=== PATIENT | male | born 1930 | race Caucasian/White ===

== ENCOUNTER 2016-02-26 22:14 | Emergency (ER) | payer MEDICARE, MEDICAID ==
[2016-02-26 23:39] LABS: ABSOLUTE NEUTROPHIL COUNT 9.2 K/mm3 (1.8-7.7); BASO % 0.4 % (0.2-1.0); EOS # 0.2 (0.0-0.5); EOS % 1.4 % (0.9-2.9); HEMATOCRIT 38.6 % (32.0-52.0); HEMOGLOBIN 13.2 gm/l (14.0-18.0); IMM NEUT% 0.2 % (0-1); LYMPH # 0.5 (1.0-4.8); LYMPH % 5.1 % (15-45); MEAN CELL VOLUME 88.3 fl (80.0-94.0); MEAN CORPUSCULAR HEMOGLOBIN 30.2 pg (27.0-31.0); MEAN CORPUSCULAR HGB CONC 34.2 g/dl (33.0-37.0); MEAN PLATELET VOLUME 9.9 fl (7.4-10.4); MONO # 0.7 (0.0-0.8); MONO % 6.3 % (4-12); NEUT % 86.6 % (43-75); PLATELET COUNT 162 K/mm3 (130-400)
[2016-02-26] MEDS ORDERED: KETOROLAC TROMETHAMINE 15 MG/ML VIAL ONE (23:40)
[2016-02-26] MEDS ORDERED: ALBUTEROL/IPRATROPIUM 2.5/0.5 MG 3 ML/EACH DOSE ONE (23:51)
[2016-02-27 00:04] LABS: ALBUMIN 3.6 gm/dL (3.5-5.7)
[2016-02-27] MEDS ORDERED: AZITHROMYCIN 250 MG TABLET ONE (01:07)
[2016-02-27 02:24] LABS: SPECIFIC GRAVITY 1.025 (1.001-1.030); URINE BILIRUBIN NEGATIVE (NEGATIVE); URINE BLOOD NEGATIVE (NEGATIVE); URINE GLUCOSE (UA) NEGATIVE (NEGATIVE); URINE LEUKOCYTE ESTERASE NEGATIVE (NEGATIVE); URINE NITRITE NEGATIVE (NEGATIVE); URINE PROTEIN 1+ (NEGATIVE); URINE UROBILINOGEN 1 mg/dL (0-1 mg/dl)
[2016-02-27 02:25] LABS: URINE APPEARANCE CLEAR; URINE COLOR DARK YELLOW
[2016-02-27 02:27] LABS: URINE BACTERIA 0; URINE EPITHELIAL CELLS FEW /hpf; URINE RBC 0-1 /hpf; URINE WBC NEG /hpf
--- NOTE | 2016-02-27 07:47 | RAD ---
Exam: Two-view chest COMPARISON: 11/29/2015, 04/07/2015 INDICATION: Weakness and cough for 2 days. Findings: PA and lateral views of the chest were obtained. Cardiac silhouette is within normal limits and stable. 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 Asymmetric elevation of the left hemidiaphragm with associated left basilar scarring is unchanged. Lung haynes are otherwise clear. Superior retraction of the minor fissure is similar. There is no pleural effusion. Bones of the chest wall within normal limits. IMPRESSION: No acute pulmonary process. There is no definite radiographic evidence of pneumonia.
== END 2016-02-27 02:58 | disposition home or self-care (01) ==
LOC: ED 22:14
DX: J18.9 Pneumonia, unspecified organism (principal); R10.9 Unspecified abdominal pain
CPT/HCPCS: 85025; 80053; 84484; 81001; 71020; 99284; 96374; 36415; 99283; J1885; A9270